=== PATIENT | female | born 1970 | race Caucasian/White ===

== ENCOUNTER 2017-04-29 13:37 | Emergency (ER) | payer BC ==
[2017-04-29] MEDS ORDERED: SODIUM CHLORIDE 0.9% 1,000 ML IV STA (14:35)
[2017-04-29] MEDS ORDERED: RX INFO: IV CONTRAST WAS GIVEN 1 EACH MISC MISCELLANE PRN (14:36)
--- NOTE | 2017-04-29 14:55 | ED ---
Abdominal Pain HPI <Janes Mandel - Last Filed: 04/29/17 16:14> - General Source: patient, RN notes reviewed Mode of arrival: ambulatory Limitations: no limitations <Gokul Narayan - Last Filed: 04/29/17 16:39> - General Chief Complaint: Abdominal Pain Stated Complaint: Abd pain sent by PCP Time Seen by Provider: 04/29/17 14:04 - History of Present Illness Initial Comments: 46-year-old female presents to the emergency department for chief complaint of lower abdominal pain 2 days. Patient had a hysterectomy in the last year and had a vaginal cuff repair in February. This morning she was at Dr. Patel's office and he referred her to the emergency department for evaluation due to peritoneal signs. Patient has seen her [facility] [facility] in March following the vaginal cuff repair and he was unconcerned. Patient states the pain has been intermittently ongoing for a year now since she had her hysterectomy. Patient states the pain always starts after having sexual intercourse and last for a few days thereafter. Patient describes the pain in the lower quadrants of her abdomen bilaterally. And states it is painful to urinate. She also describes a pressure in her lower abdomen. Patient is slightly nauseous but does not want Zofran. Patient denies vaginal bleeding or discharge. Patient had a bowel movement this morning. Patient denies vomiting or fevers and chills. Patient has not been able to eat much during the past couple days due to low appetite but has been drinking fluids. (Gokul Narayan) - Related Data Home Medications Medication Instructions Recorded Confirmed HYDROcodone/APAP 7.5-325MG [[place] 1 tab PO ONCE 04/29/17 04/29/17 7.5-325] Ibuprofen [Advil] 600 mg PO Q6HR PRN 04/29/17 04/29/17 Previous Rx's Medication Instructions Recorded predniSONE 50 mg PO DAILY #5 tablet 04/29/17 Allergies Allergy/AdvReac Type Severity Reaction Status Date / Time No Known Allergies Allergy Verified 04/29/17 14:23 Review of Systems ROS Other: All systems not noted in ROS Statement are negative. <Janes Mandel - Last Filed: 04/29/17 16:14> ROS Other: All systems not noted in ROS Statement are negative. <Gokul Narayan - Last Filed: 04/29/17 16:39> ROS Statement: Those systems with pertinent positive or pertinent negative responses have been documented in the HPI. Past Medical History Past Medical History: No Reported History History of Any Multi-Drug Resistant Organisms: None Reported Past Surgical History: Hysterectomy Additional Past Surgical History / Comment(s): vaginal cuff repair Past Psychological History: Depression Smoking Status: Current every day smoker Past Alcohol Use History: Occasional Past Drug Use History: None Reported <Gokul Narayan - Last Filed: 04/29/17 16:39> General Exam Limitations: no limitations General appearance: alert, in no apparent distress Head exam: Present: atraumatic, normocephalic, normal inspection Respiratory exam: Present: normal lung sounds bilaterally. Absent: respiratory distress, wheezes, rales, rhonchi, stridor Cardiovascular Exam: Present: regular rate, normal rhythm, normal heart sounds. Absent: systolic murmur, diastolic murmur, rubs, gallop, clicks GI/Abdominal exam: Present: tenderness (mild tenderness in LLQ), rebound ( patient states pain was slightly worse when releasing pressure in LLQ.), normal bowel sounds. Absent: distended, rigid, mass, bruit, pulsatile mass, hernia External exam: Present: normal external exam. Absent: swelling, lesions, lacerations, ecchymosis Speculum exam: Present: normal speculum exam (vaginal cuff, no bleeding, signs of infection, discharge). Absent: erythema, vaginal discharge, cervical discharge, vaginal bleeding, foreign body, tissue, laceration By manual exam: Present: normal by manual exam (vaginal cuff), adnexal tenderness (mild left adnexal tenderness), uterine tenderness (mild tenderness) . Absent: cervical motion tenderness, uterine enlargement <Gokul Narayan - Last Filed: 04/29/17 16:39> Course <Janes Mandel - Last Filed: 04/29/17 16:14> <Gokul Narayan - Last Filed: 04/29/17 16:39> Vital Signs 04/29/17 13:47 Temperature 98.0 F Pulse Rate 78 Respiratory 18 Rate Blood Pressure 119/65 O2 Sat by Pulse 100 Oximetry - Reevaluation(s) Reevaluation #1: 04/29/17 16:14 Patient reevaluated by myself, Dr. Mandel. Patient resting comfortably in bed. Patient does have mild tenderness in the suprapubic region. Patient states symptoms have been occurring for the past year. Patient had a hysterectomy a year ago by a doctor in the. Patient was hoping to get a second opinion. Patient has seen student affairs vice president and has been diagnosed with irritable bowel syndrome on colonoscopy. Patient and family are updated on results. Case was discussed with Dr. Murray from [facility] who agrees patient does not need stat OB/ [employer] DRIVER consult at this time and will follow-up with the patient. Patient is also advised that she will need to follow-up with gastroenterology as well. (Janes Mandel) Medical Decision Making - Lab Data Result diagrams: 04/29/17 14:44 04/29/17 14:44 <Janes Mandel - Last Filed: 04/29/17 16:14> - Lab Data Result diagrams: 04/29/17 14:44 04/29/17 14:44 <Gokul Narayan - Last Filed: 04/29/17 16:39> - Medical Decision Making 46 year old female presents to the emergency Department for chief complaint of abdominal pain following intercourse. She has had similar episodes for the past year after having a hysterectomy. Current pain has lasted 2 days. She has seen her H[employer] CAPITAL MANAGER for vaginal cuff repair in February and saw them again in March. H[employer] was unconcerned at this time. She did go to Dr. Patel's office, internal medicine, and he referred her to the ED for peritoneal signs. Patient did have moderate tenderness in the left lower quadrant of the abdomen and a CT was ordered. A CBC, CMP, UA, lactate was also ordered and WNL. White count was within normal limits. A pelvic exam showed no acute changes, patient does have a vaginal cuff. Patient had a colonoscopy done less than a year ago and showed no diverticulitis, ulcerative colitis or Crohn's. However Dr. Colon did state she potentially had irritable bowel syndrome and inflammation of the left colon. CT showed inflammation of the sigmoid colon. Patient is now feeling much more comfortable after having Toradol, Zofran, and IV fluids. OBGYN was consulted due to history of hysterectomy and nature of pain. She will follow up with Dr. Murray in office. Patient will also follow up with GI and given the contact info of Dr. Pratt. She will return to the emergency department if abdominal pain worsens or she starts to notice fevers or chills. (Gokul Narayan) - Lab Data Lab Results 04/29/17 04/29/17 04/29/17 Range/Units 14:44 14:44 14:44 WBC 8.5 (3.8-10.6) k/uL RBC 4.40 (3.80-5.40) m/uL Hgb 13.5 (11.4-16.0) gm/dL Hct 40.6 (34.0-46.0) % MCV 92.4 (80.0-100.0) fL MCH 30.8 (25.0-35.0) pg MCHC 33.3 (31.0-37.0) g/dL RDW 12.8 (11.5-15.5) % Plt Count 243 (150-450) k/uL Neutrophils % 73 % Lymphocytes % 20 % Monocytes % 4 % Eosinophils % 1 % Basophils % 0 % Neutrophils # 6.2 (1.3-7.7) k/uL Lymphocytes # 1.7 (1.0-4.8) k/uL Monocytes # 0.4 (0-1.0) k/uL Eosinophils # 0.0 (0-0.7) k/uL Basophils # 0.0 (0-0.2) k/uL Sodium 142 (137-145) mmol/L Potassium 4.1 (3.5-5.1) mmol/L Chloride 108 H (98-107) mmol/L Carbon Dioxide 24 (22-30) mmol/L Anion Gap 10 mmol/L BUN 9 (7-17) mg/dL Creatinine 0.60 (0.52-1.04) mg/dL Est GFR (CKD-EPI)AfAm >90 (>60 ml/min/1.73 sqM) Est GFR (CKD-EPI)NonAf >90 (>60 ml/min/1.73 sqM) Glucose 85 (74-99) mg/dL Plasma Lactic Acid [place] (0.7-2.0) mmol/L Calcium 8.9 (8.4-10.2) mg/dL Total Bilirubin 0.9 (0.2-1.3) mg/dL AST 32 (14-36) U/L ALT 45 (9-52) U/L Alkaline Phosphatase 61 (38-126) U/L Total Protein 6.5 (6.3-8.2) g/dL Albumin 3.6 (3.5-5.0) g/dL Lipase 106 (23-300) U/L Urine Color Yellow Urine Appearance Cloudy H (Clear) Urine pH 5.5 (5.0-8.0) Ur Specific [place] 1.009 (1.001-1.035) Urine Protein Negative (Negative) Urine Glucose (UA) Negative (Negative) Urine Ketones Negative (Negative) Urine Blood Negative (Negative) Urine Nitrite Negative (Negative) Urine Bilirubin Negative (Negative) Urine Urobilinogen <2.0 (<2.0) mg/dL Ur Leukocyte Esterase Negative (Negative) Urine RBC 1 (0-5) /hpf Urine WBC 1 (0-5) /hpf Ur Squamous Epith Cells 9 H (0-4) /hpf Urine Mucus Occasional H (None) /hpf 04/29/17 Range/Units 14:44 WBC (3.8-10.6) k/uL RBC (3.80-5.40) m/uL Hgb (11.4-16.0) gm/dL Hct (34.0-46.0) % MCV (80.0-100.0) fL MCH (25.0-35.0) pg MCHC (31.0-37.0) g/dL RDW (11.5-15.5) % Plt Count (150-450) k/uL Neutrophils % % Lymphocytes % % Monocytes % % Eosinophils % % Basophils % % Neutrophils # (1.3-7.7) k/uL Lymphocytes # (1.0-4.8) k/uL Monocytes # (0-1.0) k/uL Eosinophils # (0-0.7) k/uL Basophils # (0-0.2) k/uL Sodium (137-145) mmol/L Potassium (3.5-5.1) mmol/L Chloride (98-107) mmol/L Carbon Dioxide (22-30) mmol/L Anion Gap mmol/L BUN (7-17) mg/dL Creatinine (0.52-1.04) mg/dL Est GFR (CKD-EPI)AfAm (>60 ml/min/1.73 sqM) Est GFR (CKD-EPI)NonAf (>60 ml/min/1.73 sqM) Glucose (74-99) mg/dL Plasma Lactic Acid [place] 0.8 (0.7-2.0) mmol/L Calcium (8.4-10.2) mg/dL Total Bilirubin (0.2-1.3) mg/dL AST (14-36) U/L ALT (9-52) U/L Alkaline Phosphatase (38-126) U/L Total Protein (6.3-8.2) g/dL Albumin (3.5-5.0) g/dL Lipase (23-300) U/L Urine Color Urine Appearance (Clear) Urine pH (5.0-8.0) Ur Specific [place] (1.001-1.035) Urine Protein (Negative) Urine Glucose (UA) (Negative) Urine Ketones (Negative) Urine Blood (Negative) Urine Nitrite (Negative) Urine Bilirubin (Negative) Urine Urobilinogen (<2.0) mg/dL Ur Leukocyte Esterase (Negative) Urine RBC (0-5) /hpf Urine WBC (0-5) /hpf Ur Squamous Epith Cells (0-4) /hpf Urine Mucus (None) /hpf Disposition <Janes Mandel - Last Filed: 04/29/17 16:14> Decision Time: 16:38 <Gokul Narayan - Last Filed: 04/29/17 16:39> Clinical Impression: Abdominal pain Disposition: HOME SELF-CARE Condition: Good Instructions: Abdominal Pain (ED) Additional Instructions: Please follow up with [facility] [employer] and GI in the next 1-2 days. Please return to the emergency department if symptoms worsen. Prescriptions: predniSONE 50 mg PO DAILY #5 tablet Referrals: Agus Patel MD [Primary Care Provider] - 1-2 days Myla Pratt MD [STAFF PHYSICIAN] - 1-2 days Betty Murray MD [STAFF PHYSICIAN] - 1-2 days
[2017-04-29] MEDS ORDERED: KETOROLAC 30 MG/ML 1 ML VIAL IVP STA (15:00)
[2017-04-29 15:01] LABS: Basophils % (A) 0 %; Eosinophils % (A) 1 %; HCT 40.6 % (34.0-46.0); HGB 13.5 gm/dL (11.4-16.0); Lymphocytes # (A) 1.7 k/uL (1.0-4.8); Lymphocytes % (A) 20 %; MCH 30.8 pg (25.0-35.0); MCHC 33.3 g/dL (31.0-37.0); MCV 92.4 fL (80.0-100.0); Mean Platelet Volume 7.3; Monocytes # (A) 0.4 k/uL (0-1.0); Monocytes % (A) 4 %; Neutrophils # (A) 6.2 k/uL (1.3-7.7); Neutrophils % (A) 73 %; Platelet Count 243 k/uL (150-450); RDW 12.8 % (11.5-15.5); WBC 8.5 k/uL (3.8-10.6)
[2017-04-29] MEDS ORDERED: ONDANSETRON 4 MG/2 ML VIAL IVP STA (15:05)
[2017-04-29 15:06] LABS: ALT 45 U/L (9-52); AST 32 U/L (14-36); Albumin 3.6 g/dL (3.5-5.0); Alkaline Phosphatase 61 U/L (38-126); Anion Gap 10 mmol/L; Blood Urea Nitrogen 9 mg/dL (7-17); Calcium 8.9 mg/dL (8.4-10.2); Carbon Dioxide 24 mmol/L (22-30); Chloride 108 mmol/L (98-107); Glucose 85 mg/dL (74-99); Lipase 106 U/L (23-300); Potassium 4.1 mmol/L (3.5-5.1); Sodium 142 mmol/L (137-145); Total Bilirubin 0.9 mg/dL (0.2-1.3); Total Protein 6.5 g/dL (6.3-8.2)
[2017-04-29 15:09] LABS: Appearance,Urine Cloudy (Clear); Bilirubin,Urine Negative (Negative); Blood,Urine Negative (Negative); Color,Urine Yellow; Glucose,Urine (UA) Negative (Negative); Ketones,Urine Negative (Negative); Leukocyte Esterase,Urine Negative (Negative); Mucus,Urine Occasional /hpf; Nitrite,Urine Negative (Negative); PH, Urine 5.5 (5.0-8.0); Protein,Urine Negative (Negative); RBC,Urine 1 /hpf (0-5); Specific Gravity,Urine 1.009 (1.001-1.035); Squamous Epithelial Cell,Urine 9 /hpf (0-4); Urobilinogen,Urine <2.0 mg/dL (<2.0); WBC,Urine 1 /hpf (0-5)
--- NOTE | 2017-04-29 15:33 | CT ---
EXAMINATION TYPE: CT abdomen pelvis w con DATE OF EXAM: 04/29/2017 COMPARISON: NONE HISTORY: 46-year-old female with generalized abdominal pain x 4 days with nausea. TECHNIQUE: Contiguous axial scanning of the abdomen and pelvis following administration of 100 ml Omn ipaque 300 IV contrast. Delayed images through the kidneys and coronal/sagittal reconstructions perf ormed. CT DLP: 1101 mGycm Automated exposure control for dose reduction was used. FINDINGS: Bilateral breast prostheses are present. Heart normal size without pericardial effusion. Some subpleural nodular atelectasis peripheral left b ase. No pleural effusion. No focal liver lesion or biliary ductal dilatation. Portal venous system is patent. Gallbladder, adrenal glands, kidneys, spleen, and pancreas appear within normal limits. No dilated small bowel, free fluid, or free air. No mesenteric or retroperitoneal lymphadenopathy. Mild stool. There is circumferential wall thickening along the sigmoid colon with mild pericolonic fa t stranding such as on axial image 57 and 59. Normal appendix. Bladder is urine distended. Uterus appears surgically absent. No abnormal fluid collection in the pel vis or pelvic lymphadenopathy seen. Right ovary not visualized. Left ovary is seen with follicular ch odette. Bones: No osseous destructive process. Mild disc bulge at L5-S1. IMPRESSION: 1. CIRCUMFERENTIAL WALL THICKENING ALONG THE SIGMOID COLON WITH SUGGESTION OF MILD SURROUNDING INFLAM MATION. CORRELATE FOR NONSPECIFIC SIGMOID COLITIS THAT COULD BE INFECTIOUS OR INFLAMMATORY. 2. STATUS POST HYSTERECTOMY. FOLLICULAR CHANGES IN THE LEFT OVARY. RIGHT OVARY NOT CLEARLY SEEN.
[2017-04-29 16:49] VITALS: BP 97/55; PULSE 67; RESP 16; TEMP 97.9
== END 2017-04-29 16:48 | disposition home or self-care (01) ==
LOC: EC 13:37
DX: R10.31 Right lower quadrant pain (principal); R10.32 Left lower quadrant pain; R11.0 Nausea; K63.89 Other specified diseases of intestine; F17.200 Nicotine dependence, unspecified, uncomplicated; Z79.891 Long term (current) use of opiate analgesic; Z79.899 Other long term (current) drug therapy; Z90.710 Acquired absence of both cervix and uterus
CPT/HCPCS: 36415; 80053; 83605; 83690; 85025; 81001; 87040; 74177; 99284; 96374; 96375; 96361 ×2; J2405; J1885; Q9967